=== PATIENT | male | born 1975 | race Caucasian/White ===

== ENCOUNTER → 2023-02-19 12:02 | Outpatient (BNVA) | payer OTHER, SELFPAY | PROVIDERS: PCP Nurse Practitioner Family; Visit Provider Physician Assistant ==

== ENCOUNTER 2023-03-07 11:36 | Outpatient (REF) | payer OTHER, SELFPAY ==
--- NOTE | 2023-03-07 09:00 | EMG_ITS ---
Right median and ulnar motor and sensory studies were performed. Right radial sensory study was performed and paraspinal muscles were tested with a needle. IMPRESSION: 1. Fmac-cm-hvwqywci right median neuropathy across carpal tunnel. 2. Mild right ulnar neuropathy across cubital tunnel. MD JANELL Viera/ELODIA / [phone]
== END 2023-03-07 11:37 | disposition home or self-care (01) ==
LOC: HO.NEURO 11:36
PROVIDERS: PCP Nurse Practitioner Family; Visit Provider Nurse Practitioner Family
DX: R20.0 Anesthesia of skin (principal)
CPT/HCPCS: 95886; 95909

== ENCOUNTER 2023-05-09 07:32 | Outpatient (AMB) | payer OTHER, SELFPAY ==
--- NOTE | 2023-05-09 07:37 | A.OFFPC_ITS ---
Vital Signs 05/09/23 07:38 Height 5 ft 11 in Weight 196 lb 6 oz BMI 27.4 BP 126/72 Blood Pressure Location Rt brachial Position Sitting Pulse 66 Pulse Source Pulse Oximeter Pulse Oximetry (%) 100 Oxygen Delivery Method Room Air Intake Visit Reasons: PE Allergies penicillin V Allergy (Unknown, Verified 05/09/23 07:41) unknown Tobacco use date assessed: 05/09/23 Dental Screening Dental Screen Date: 05/09/23 Did you have a dental visit in the last 12 months?: Yes Did you have a dental problem in the last 6 months where you did not have access to dental care?: No Was dental information given to patient?: Patient has dentist HPI PE HPI Details Pt is here for a PE. Will order labs. Due for PSA, will order. Denies dribblin with urination, weak stream, and nocturia. Pt is interested in seeeing a therapist, will have BH team reach out to pt. Denies any SI and HI. PFSH Family History Paternal Aunt Substance use disorder Father Substance use disorder Paternal Grandfather Substance use disorder Social History Housing: House Patient Tobacco Use Status: Never used Tobacco e-Cigarette/Vaping Use: Never Used Second Hand Smoke Exposure: No service: Yes Current occupational status: employed Current occupation: [employer] Current occupational exposures/hazards: No Cognitive needs: No Hearing needs: No Vision needs: No Questionnaire PHQ-9 Over the last 2 weeks, how often have you been bothered by any of the following problems? 1. Little interest or pleasure in doing things: not at all 2. Feeling down, depressed, or hopeless: not at all 3. Trouble falling or staying asleep, or sleeping too much: not at all 4. Feeling tired or having little energy: not at all 5. Poor appetite or overeating: not at all 6. Feeling bad about yourself - or that you are a failure or have let yourself or your family down: not at all 7. Trouble concentrating on things, such as reading the newspaper or watching television: not at all 8. Moving or speaking so slowly that other people could have noticed. Or the opposite - being so fidgety or restless that you have been moving around a lot more than usual: not at all 9. Thoughts that you would be better off or of hurting yourself in some way: not at all Total score: 0 Depression Screening Interpretation: Negative 12194 - PHQ-9 Billing: Yes Source: Developed by Drs. Isacc Flaherty, Yamilex Magdaleno, Darron Diehl and colleagues, with an educational karyn from [employer]. Thrive Questionnaire Date Thrive assessed: 05/09/23 I am a: Patient What is your living situation today?: I have a steady place to live Within the past 12 months, did the food you bought not last and you didn't have the money to get more?: Never true Within the past 12 months, did you worry whether your food would run out before you got money to buy more?: Never true Do you have trouble paying for medicines?: No Do you have trouble getting transportation to medical appointments?: No Do you have trouble paying your heating and electricity bill?: No Do you have trouble taking care of your child, family member or friend?: No Do you have trouble with day-to-day activities such as bathing, preparing meals, shopping, managing finances, etc.?: No Are you currently unemployed and looking for a job?: No Are you interested in more education?: No KESHAWN-7 AMB Questionnaire KESHAWN-7 Date KESHAWN - 7 assessed: 05/09/23 Feeling nervous, anxious, or on edge: 0 = Not at all Not being able to stop or control worryin = Not at all Worrying too much about different things: 0 = Not at all Trouble relaxin = Not at all Being so restless that it is hard to sit still: 0 = Not at all Becoming easily annoyed or irritable: 0 = Not at all Feeling afraid as if something awful might happen: 0 = Not at all Total KESHAWN-7 score (0-4 normal; 5-9 mild; 10-14 moderate; 15-21 severe): 0 Source: Developed by Drs. Isacc Flaherty, Yamilex Magdaleno, Darron Diehl and colleagues, with an educational karyn from [employer]. KESHAWN-7 Assessment Billing KESHAWN-7 Assessment Tool: KESHAWN-7 Assessment 89729 Review of Systems Const Denies chills and Denies fever(s) Eyes Denies blurry vision ENT Denies vertigo, Denies dizziness and Denies sore throat Card Denies chest pain at rest, Denies chest pain with activity, Denies diaphoresis, Denies dyspnea and Denies dyspnea on exertion Resp Denies cough, Denies dyspnea, Denies dyspnea on exertion and Denies wheezing GI Denies abdominal pain, Denies melena, Denies hematochezia, Denies constipation, Denies diarrhea and Denies loose stools Denies hematuria Musc Denies numbness and Denies tingling Skin/Breast Denies lesions Neuro Denies vertigo, Denies dizziness, Denies numbness and Denies tingling Psych Denies anxiety, Denies depression, Denies homicidal ideation, Denies suicidal ideation and Denies other (substance abuse) Aller/Immun Denies wheezing Physical exam (Primary Care) Vital Signs: Last Vital Signs Pulse 66 05/09/23 07:38 BP 126/72 05/09/23 07:38 Pulse Ox 100 05/09/23 07:38 Oxygen Delivery Method Room Air 05/09/23 07:38 BMI result Body Mass Index 27.4 Tobacco/Smoking Status: Tobacco use Status Tobacco use date assessed 05/09/23 05/09/23 07:45 Patient Tobacco Use Status Never used Tobacco 05/09/23 07:45 e-Cigarette/Vaping Use Never Used 05/09/23 07:45 PHQ-9: PHQ-9 Score PHQ-9: Total score 0 05/09/23 08:13 Depression Screening Interpretation: Negative Thrive Assessment: Date of Thrive Assessment Date Thrive assessed 05/09/23 05/09/23 08:13 Const General: cooperative Nutritional Appearance: well nourished Orientation/consciousness: patient oriented x3 HENMT Head: Yes normal to inspection, Yes normocephalic and Yes atraumatic Ears: TM's normal bilaterally Eyes General: appearance normal, both eyes and all related structures Alignment and Position: alignment normal and position normal Neck Neck: Yes normal visual inspection and Yes no lymphadenopathy Thyroid: Thyroid normal Resp Effort & Inspection: normal respiratory effort Auscultation: clear to auscultation bilaterally Cardio Rate: regular rate Rhythm: regular rhythm Heart sounds: S1 normal heart sound present, S2 normal heart sound present and no murmurs GI Palpation (GI): Soft to palpation and nontender Auscultation: normal bowel sounds Male General Exam: Yes normal external exam Penis: normal penis Scrotum: scrotum normal, testes descended bilaterally and no inguinal hernias Testes: no testicular mass Skin Rashes: no rashes Neuro General: patient oriented x3, moves all extremities, no focal motor deficits and deep tendon reflexes 2+ bilaterally Romberg Test: Negative Psych Appearance: grossly normal Mental Status: mental status grossly normal Speech and movement: Normal speech and movement present Affect: normal affect Attitude: cooperative Thought process: Normal thought process present Thought content: Normal thought content present Insight: Good insight present (Psych) Judgement: Good judgement present (Psych) Assessment and Plan Assessment & Plan (1) Physical exam, annual: Code(s): Z00.00 - Encounter for general adult medical examination without abnormal findings Plan: Labs ordered (2) Screening PSA (prostate specific antigen): Code(s): Z12.5 - Encounter for screening for malignant neoplasm of prostate Plan: PSA ordered Plan The patient agreed to the use of a medical administrative assistant for this encounter. Scribed for MONI Dye-TC by Chelsie Mederos medical administrative assistant, on 05/09/2023 at 07:45 EST. Orders: Orders Comprehensive [place]. Panel Fast Today Z00.00 - Encounter for general adult medical examination without abnormal findings Lipid Panel Today Z00.00 - Encounter for general adult medical examination without abnormal findings TSH reflex Free T4 Today Z00.00 - Encounter for general adult medical examination without abnormal findings Complete Blood Count Auto Diff Today Z00.00 - Encounter for general adult medical examination without abnormal findings UA CC w/rflx Micro + Cult Today Z00.00 - Encounter for general adult medical examination without abnormal findings Prostate Specific Antigen Scr Today Z12.5 - Encounter for screening for malignant neoplasm of prostate Coding Level of Care Code Est Pt Prev Care 40-64y(93809) Diagnoses Physical exam, annual Z00.00 Screening PSA (prostate specific antigen) Z12.5 Additional Codes KESHAWN-7 Assessment Billing - KESHAWN-7 Assessment Tool: KESHAWN-7 Assessment 37051 ([id number])
[2023-05-09 07:38] VITALS: BP 126/72; PULSE 66; O2SAT 100; BMI 27.4
== END 2023-05-09 08:03 | disposition home or self-care (01) ==
PROVIDERS: Visit Provider Nurse Practitioner Family
DX: Z00.00 Encounter for general adult medical examination without abnormal findings (principal); Z12.5 Encounter for screening for malignant neoplasm of prostate
CPT/HCPCS: 99396

== ENCOUNTER 2023-05-21 14:52 | Outpatient (AMB) | payer OTHER, SELFPAY ==
--- NOTE | 2023-05-21 15:04 | A.OFFVIS_ITS ---
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 Patient reports ongoing for many years. Having ongoing numbness and tingling in his arm. Pain is worse when laying on it and driving. 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 He complains of numbness and pain primarily in his left arm, from his elbow and radiating down into his hand. He says his arm is numb all the time . He has numbness in all digits of the left hand. He says his numbness is worse at night or with activities such as driving, he also says his numbness is worse with inclimate weather. He says he has had been feeling numbness in his left hand for ~10 years, and it has been more constant for ~2 years. He also says his hand has been swelling occasionally, mostly in the mornings. He also complains of numbness in all digits of the right hand. He says his symptoms are intermittent, but daily, worse at night. His right hand is not as bothersome as his left. 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 He says he tries to stay active with exercise throughout the week. He says his NCS was performed primarily on his LUE and his neck, and not performed on his RUE. The report from Neurology says they tested the RUE only. [facility] Family History Paternal Aunt Substance use disorder Father Substance use disorder Paternal Grandfather Substance use disorder Social History Housing: House Patient Tobacco Use Status: Never used Tobacco e-Cigarette/Vaping Use: Never Used Second Hand Smoke Exposure: No service: Yes Current occupational status: employed Current occupation: [employer] Current occupational exposures/hazards: No Cognitive needs: No Hearing needs: No Vision needs: No Review of Systems Const All systems reviewed & are unremarkable except as noted in HPI and below Physical Exam Const General: cooperative, healthy appearing and no acute distress Orientation/consciousness: patient oriented x3 HEENT Head: Yes normocephalic and Yes atraumatic Eyes EOM: EOMs intact bilaterally Resp Effort & Inspection: normal respiratory effort and able to speak in complete sentences Cardio Jugular venous distension: no JVD Skin General skin exam: turgor normal Rashes: no rashes Neuro General: patient oriented x3 Extrem Other: Evaluation of Bilateral Upper Extremity: The patient is alert, oriented, and in no acute distress Neuro: Dense numbness to the tips of all digits of the left hand including the small finger. Normal sensation to the tips of all digits of the right hand today in clinic No thenar or intrinsic wasting Good APB muscle belly firing and good finger cross Vascular: Cap refill brisk ROM: He can make a fist and extend all his digits Skin: No lacerations or abrasions. General: No Ecchymosis. No Erythema or evidence of infection. Nerve Conduction Study: Note: Patient reports this was done on the LUE and his neck and not his RUE IMPRESSION:? 1. Ioxg-ov-gcbzawyv right median neuropathy across carpal tunnel. 2. Mild right ulnar neuropathy across cubital tunnel. Florida Brown MD 03/07/2023 Psych Appearance: grossly normal Affect: normal affect Attitude: cooperative Assessment & Plan Assessment & Plan (1) Carpal tunnel syndrome of left wrist: Code(s): G56.02 - Carpal tunnel syndrome, left upper limb (2) Cubital tunnel syndrome on left: Code(s): G56.22 - Lesion of ulnar nerve, left upper limb (3) Numbness of right hand: Code(s): R20.0 - Anesthesia of skin Plan Assessment & Plan: 1. Left Carpal tunnel syndrome, mild-moderate With dense numbness 2. Left Cubital tunnel syndrome, mild With dense numbness, worse at night His NCS report from 03/07/23, performed by Dr. Brown states that only his RUE tested. Speaking with the patient he says his LUE and neck were tested. I AM HAVING 1 OF OUR MA EASE reach out to Dr. Brown'S OFFICE concerning this I educated him about this condition I discussed operative and non-operative treatment options The patient would like to proceed with surgery The risks and benefits of operative treatment were discussed with the patient and the patient wishes to proceed with surgery. These risks include, but are not limited to risk of damage to blood vessels, nerves, tendons, infection, recurrence, incomplete relief of preoperative symptoms, persistent pain, possible need for further surgery and the risks associated with regional blocks and anesthesia. The plan is to take the patient to the operating room sometime in the next few weeks for the following procedures: 1. Left carpal tunnel release, under general 2. Left Cubital tunnel release vs transposition, under general All of the preoperative paperwork including the consent was filled out today. All the patient's questions were answered. The patient understands that they will be contacted by our actuarial science teacher soon to schedule this procedure He does not want any narcotic medication post-operatively He denies Diabetes, blood thinners, asthma, heart, lung, kidney issues 3. Right hand numbness In all digits Symptoms intermittent, but daily, worse at night We can discuss this at a later date Scribed for Karla Olivares MD by Samson Curtis, medical manager, on 05/21/23 at 3:35 PM, EST. Coding Level of Care Code New Pt Level 4 (07118) Diagnoses Carpal tunnel syndrome of left wrist G56.02 Cubital tunnel syndrome on left G56.22 Numbness of right hand R20.0
== END 2023-05-21 15:44 | disposition home or self-care (01) ==
PROVIDERS: PCP Nurse Practitioner Family; Visit Provider Orthopaedic Surgery
DX: G56.02 Carpal tunnel syndrome, left upper limb (principal); G56.22 Lesion of ulnar nerve, left upper limb; R20.0 Anesthesia of skin
CPT/HCPCS: 99204

== ENCOUNTER → 2023-05-21 14:52 | Outpatient (BNVA) | payer OTHER, SELFPAY | PROVIDERS: PCP Nurse Practitioner Family; Visit Provider Orthopaedic Surgery ==

== ENCOUNTER 2023-06-20 07:40 | Day surgery (SDC) | payer OTHER, SELFPAY ==
[2023-06-18 14:51] VITALS: BMI 27.4
--- NOTE | 2023-06-19 12:03 | HO.ANESPROP2 ---
Documented by User: Norma Bowen NP 06/19/23 12:04 HPI - Anesthesia Eval Consult details Narrative: 47yo M for Left Carpal Tunnel Release, Left Cubital Tunnel Release vs transpostition PMFSH Active Problems Active Problems: All Active Problems (Updated 05/21/23 @ 15:34 by Samson Curtis) Cubital tunnel syndrome on left (Acute) Carpal tunnel syndrome of left wrist (Acute) Screening PSA (prostate specific antigen) (Acute) Physical exam, annual (Acute) Numbness of right hand (Acute) Screening for colon cancer (Acute) Bilateral hand numbness (Acute) Carpal tunnel syndrome (Acute) Soft tissue lesion (Acute) Family History Family History Paternal Aunt Substance use disorder Father Substance use disorder Paternal Grandfather Substance use disorder Social History Social History Housing: House Patient Tobacco Use Status: Never used Tobacco e-Cigarette/Vaping Use: Never Used Second Hand Smoke Exposure: No Are you DNR?: No Advance Directives: No Advance Directives Information Provided: Yes Nutrition Risks: No Nutritional Risk service: Yes Current occupational status: employed Current occupation: [employer] Current occupational exposures/hazards: No Cognitive needs: No Hearing needs: No Vision needs: No Meds Allergies Allergy/AdvReac Type Severity Reaction Status Date / Time penicillin V Allergy Unknown unknown Verified 06/20/23 08:09 Exam Exam Date and Time: June 19, 2023 1203 Height,Weight and Vital Signs: Height 5 ft 11 in Weight 89.176 kg Assessment and Plan Assessment Anesthesia Assessment: Chart Reviewed Documented by User: Yaneli Vargas MD 06/20/23 08:22 PMFSH Family History Family History Paternal Aunt Substance use disorder Father Substance use disorder Paternal Grandfather Substance use disorder Family history of problems with anesthesia: No Surgical History History of Problems with Anesthesia: No Social History Social History Housing: House Patient Tobacco Use Status: Never used Tobacco e-Cigarette/Vaping Use: Never Used Second Hand Smoke Exposure: No Are you DNR?: No Advance Directives: No Advance Directives Information Provided: Yes Nutrition Risks: No Nutritional Risk service: Yes Current occupational status: employed Current occupation: [employer] Current occupational exposures/hazards: No Cognitive needs: No Hearing needs: No Vision needs: No Meds Allergies Allergy/AdvReac Type Severity Reaction Status Date / Time penicillin V Allergy Unknown unknown Verified 06/20/23 08:09 Exam Airway Mallampati Class: II TM Dist: >3cm Neck ROM: Full Heart: rrr Lungs: cta Assessment and Plan Assessment Anesthesia Assessment: Anesthesia Plan Discussed Final Anesthetic Review Family History of Problems with Anesthesia: No History of Problems with Anesthesia: No NPO: Yes ASA Class: I Final Preanesthetic Review: No Changes in Pt Med Stat, Meds/Allgs Chart Reviewed, Consent Obtained/Reviewed and Anes Risks/Benef Reviewed Patient Risk: Low Procedure Risk: Low Anesthetic Plan Anesthetic Plan: GA Disposition: Standard PACU
[2023-06-20] VITALS (8 sets, daily range): BP systolic 108–134; BP diastolic 66–85; PULSE 53–68; RESP 16–18; TEMP 36.2–36.7; O2SAT 98–100
[2023-06-20] MEDS: Lactated Ringers 1,000 ML 100 ML IVCONT (08:00)
--- NOTE | 2023-06-20 09:12 | MHC.SHP ---
Pre-Procedural Eval Section A Date of Service: 06/20/23 The patient is an INPATIENT: No Changes since office visit: No Cold of Flu in the past 2 weeks, No New Medical Problems, No Changes in Medication and No Patient answered all questions The History & Physical has been completed within 30 days and I have reviewed it.: Yes Section B Chief Complaint: Carpal tunnel syndrome, left upper limb Allergies: Allergies Allergy/AdvReac Type Severity Reaction Status Date / Time penicillin V Allergy Unknown unknown Verified 06/20/23 08:09 Plan I have reviewed the history and physical and performed a pertinent physical examination on my patient. No changes have occurred unless specified. Time Spent With Patient Time: Total time managing care of this patient today ____ minutes.
--- NOTE | 2023-06-20 09:12 | W.PM.OPN ---
Operative Note Operative Note Date of Service: 06/20/23 Narrative: Operative Note Narrative: Preop diagnosis: 1. left Cubital tunnel syndrome 2. Left carpal tunnel syndrome Postop diagnosis: Same Procedure: 1. left Cubital Tunnel Release 2. Left carpal tunnel release Surgeon: Karla Olivares MD Anesthesia: General Anesthesia Findings: Thickening and fibrosis about the ulnar nerve at the cubital tunnel. After cubital tunnel release the ulnar nerve was noted to slide out from the groove slightly with elbow flexion, but did not subluxate. Implants: none Tourniquet time: 35 minutes EBL: 5.0 ml Specimen: none Drains: None Complications: None Disposition: Brought to the recovery room in stable condition Plan: Follow-up in 10-14 days for wound check, and suture removal Indications: The patient is 47 years old with left cubital tunnel syndrome and left carpal tunnel syndrome . The risks and benefits of operative treatment, including but not limited to risk of damage to blood vessels, nerves, tendons, infection, recurrence, persistent pain or numbness, incomplete resolution of preoperative symptoms, or need for further surgery were discussed with the patient and they wished to proceed with surgery. Procedure: Once consent was obtained patient was brought back to the operating suite and placed in the operating table in a supine position. Perioperative antibiotics and anesthesia was administered by the anesthesia team. The limb was prepped and draped in a standard surgical fashion, and a sterile tourniquet applied to the proximal aspect of the left upper extremity. The limb was elevated exsanguinated with Esmarch bandage and the tourniquet inflated to 250 mm of mercury for a total tourniquet time of 35 minutes. Once assured that we had a good block, a 2.0 cm longitudinal incision was made centered over the left carpal tunnel. The incision was made through the skin to the subcutaneous tissues using a #15 blade. Dissection was made down to the level of the transverse carpal ligament with care being taken to protect the palmar cutaneous nerve. Once the transverse carpal ligament was clearly visualized, a longitudinal incision was made in the transverse carpal ligament 1st using a #15 blade, then using tenotomy scissors under direct visualization. Care was taken to look for and protect the motor branch of the median nerve when seen in this area. Once satisfied with our carpal tunnel release the wound was irrigated with normal saline. A 6 cm gently curved but longitudinally oriented incision was made centered over the cubital tunnel of the left upper extremity. Incision was made through the skin to the subcutaneous tissues using a # 15 Blade. I then dissected down to the level of the medial epicondyle and the cubital tunnel using tenotomy scissors. Care was taken to protect the lateral antebrachial cutaneous nerve. The ulnar nerve was identified just posterior to the medial intermuscular septum. The ulnar nerve was released in a proximal to distal direction using tenotomy in iris scissors while directly visualizing and protecting the ulnar nerve. Thickening and fibrosis was appreciated about the ulnar nerve as it passed through the cubital tunnel. The ulnar nerve was assessed as I passed the elbow through full flexion and extension . The ulnar nerve was found to slide from its groove slightly with elbow flexion but did not subluxate. I felt transposition was not necessary. . At this point the tourniquet was deflated and hemostasis obtained with a brief period of local pressure and bipolar electrocautery. The wound was copiously irrigated with normal saline. The subcutaneous layer was closed with 4-0 Vicryl suture, and the skin edges were reapproximated with 5-0 nylon suture. The wound was infiltrated with some 1% lidocaine with epinephrine for postop pain control and sterile dressings were applied. The patient appears to have tolerated the procedure well and with no complications. All digits were well vascularized conclusion of the case.
== END 2023-06-20 12:23 | disposition home or self-care (01) ==
PROVIDERS: PCP Nurse Practitioner Family; Visit Provider Orthopaedic Surgery
PROC: (CPT 64721; principal; 2023-06-20 09:00)
PROC: (CPT 64718; 2023-06-20 09:00)
DX: G56.02 Carpal tunnel syndrome, left upper limb (principal); G56.22 Lesion of ulnar nerve, left upper limb; M25.522 Pain in left elbow; R20.0 Anesthesia of skin; R20.2 Paresthesia of skin; Z88.0 Allergy status to penicillin
CPT/HCPCS: 64721; 64718; J0690; J2250; J3010

== ENCOUNTER → 2023-06-20 07:40 | Outpatient (BNV) | payer OTHER, SELFPAY | PROVIDERS: PCP Nurse Practitioner Family; Visit Provider Orthopaedic Surgery | DX: G56.22 Lesion of ulnar nerve, left upper limb (principal); G56.02 Carpal tunnel syndrome, left upper limb | CPT/HCPCS: 64718; 64721 ==

== ENCOUNTER 2023-07-03 13:52 | Outpatient (AMB) | payer OTHER, SELFPAY ==
--- NOTE | 2023-07-03 13:54 | MHC.OFFVIS ---
Intake Intake Visit Reasons: PO LT CTR, Cub.Rel.vs Transp. 06/20/23AR Intake Note: Prabhjot 47 yr old male presents today for his P/O visit for his left CTR and Cubital release from 06/20/23. Sutures removed and steri strips applied. States he is experiencing sharp electric shock in tips of fingers. Also mentioned his sensation has improved a little. Allergies penicillin V Allergy (Unknown, Verified 07/03/23 14:08) unknown HPI PO LT CTR, Cub.Rel.vs Transp. 06/20/23AR HPI Details Prabhjot is a 47 year old right hand dominant man who presents S/P left carpal tunnel release & cubital tunnel release, DOS: 06/20/23. He says he is feeling a sharp shocking sensation to the tips of his fingers which he is concerned about. His sensation is perhaps slightly improved but continues to feel numb to the tips of all digits. 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 [facility] Family History Paternal Aunt Substance use disorder Father Substance use disorder Paternal Grandfather Substance use disorder Social History Housing: House Patient Tobacco Use Status: Never used Tobacco e-Cigarette/Vaping Use: Never Used Second Hand Smoke Exposure: No service: Yes Current occupational status: employed Current occupation: [employer] Current occupational exposures/hazards: No Cognitive needs: No Hearing needs: No Vision needs: No Review of Systems Const All systems reviewed & are unremarkable except as noted in HPI and below Physical Exam Const General: no acute distress and alert Orientation/consciousness: patient oriented x3 Neuro General: patient oriented x3 Extrem Other: The patient was alert oriented and in no acute distress Left upper extremity exam: The left elbow and left palm incisions are healing well with no erythema drainage or evidence of infection. Sutures removed and Steri-Strips applied He can make a fist and extend all his digits Good active elbow range of motion without discomfort He continues to have dense numbness to the tips of all digits Cap refill is brisk Nerve Conduction Study: Note: Patient reports this was done on the LUE and his neck and not his RUE IMPRESSION:? 1. [id number]-[id number] right median neuropathy across carpal tunnel. 2. Mild right ulnar neuropathy across cubital tunnel. Florida Brown MD 03/07/2023 Psych Appearance: grossly normal Affect: normal affect Attitude: cooperative Assessment & Plan Assessment & Plan (1) Carpal tunnel syndrome of left wrist: Code(s): G56.02 - Carpal tunnel syndrome, left upper limb (2) Cubital tunnel syndrome on left: Code(s): G56.22 - Lesion of ulnar nerve, left upper limb (3) Numbness of right hand: Code(s): R20.0 - Anesthesia of skin Plan Assessment & Plan: 1. Left Carpal tunnel syndrome, S/P release Date of surgery 06/20/2023 Pre-operatively with dense numbness Still with dense numbness, perhaps slightly improved 2. Left Cubital tunnel syndrome, S/P release Is date of surgery 06/20/2023 Pre-operatively with dense numbness, worse at night Still with dense numbness, perhaps slightly improved The patient appears to be doing well post-operatively I educated him about the post-operative course I discussed activity modifications, he is to lift nothing heavier than a cellphone for the next two weeks He will perform gentle ROM exercises at home He should avoid any underwater activities for the next 5 days He should gently massage about the incision site to reduce the risk of hypersensitivity He can follow up prn 3. Right hand numbness In all digits Symptoms intermittent several times a week, worse at night Please note, No nerve conduction study was performed on the right hand We can discuss this at a later date I encouraged him to follow up sooner if his symptoms increase in frequency and severity and explained the risks of delaying treatment if his numbness worsens Scribed for Karla Olivares MD by Samson Curtis, medical collections representative, on 07/03/23 at 2:20 PM, EST. Coding Level of Care Code Global (25933) Diagnoses Carpal tunnel syndrome of left wrist G56.02 Cubital tunnel syndrome on left G56.22 Numbness of right hand R20.0
== END 2023-07-03 14:37 | disposition home or self-care (01) ==
PROVIDERS: PCP Nurse Practitioner Family; Visit Provider Orthopaedic Surgery
DX: G56.02 Carpal tunnel syndrome, left upper limb (principal); G56.22 Lesion of ulnar nerve, left upper limb; R20.0 Anesthesia of skin
CPT/HCPCS: 99024

== ENCOUNTER → 2023-07-03 13:52 | Outpatient (BNVA) | payer OTHER, SELFPAY | PROVIDERS: PCP Nurse Practitioner Family; Visit Provider Orthopaedic Surgery ==

== ENCOUNTER 2023-08-29 10:45 | Day surgery (SDC) | payer OTHER, SELFPAY ==
[2023-08-27 13:06] VITALS: BMI 27.3
--- NOTE | 2023-08-28 10:22 | P.CONAN_ITS ---
Documented by User: Norma Bowen NP 08/28/23 10:22 HPI - Anesthesia Eval Consult details Narrative: 48yo M for Colonoscopy PMFSH Active Problems Active Problems: All Active Problems (Updated 05/21/23 @ 15:34 by Samson Curtis) Cubital tunnel syndrome on left (Acute) Carpal tunnel syndrome of left wrist (Acute) Screening PSA (prostate specific antigen) (Acute) Physical exam, annual (Acute) Numbness of right hand (Acute) Screening for colon cancer (Acute) Bilateral hand numbness (Acute) Carpal tunnel syndrome (Acute) Soft tissue lesion (Acute) Family History Family History Paternal Aunt Substance use disorder Father Substance use disorder Paternal Grandfather Substance use disorder Family history of problems with anesthesia: No Surgical History Surgical History History of vasectomy History of decompression of ulnar nerve History of arthroscopy of knee History of carpal tunnel release History of Problems with Anesthesia: No Social History Social History Housing: House Patient Tobacco Use Status: Never used Tobacco e-Cigarette/Vaping Use: Never Used Second Hand Smoke Exposure: No service: Yes Current occupational status: employed Current occupation: [employer] Current occupational exposures/hazards: No Cognitive needs: No Hearing needs: No Vision needs: No Meds Allergies Allergy/AdvReac Type Severity Reaction Status Date / Time penicillin V Allergy Unknown unknown Verified 07/03/23 14:08 Exam Exam Date and Time: August 28, 2023 1022 Height,Weight and Vital Signs: Height 5 ft 11 in Weight 88.904 kg Assessment and Plan Assessment Anesthesia Assessment: Chart Reviewed Final Anesthetic Review Family History of Problems with Anesthesia: No History of Problems with Anesthesia: No Documented by User: Michealfabiola Galaviz MD 08/29/23 14:10 [facility] Family History Family History Paternal Aunt Substance use disorder Father Substance use disorder Paternal Grandfather Substance use disorder Surgical History Surgical History History of vasectomy History of decompression of ulnar nerve History of arthroscopy of knee History of carpal tunnel release Social History Social History Housing: House Patient Tobacco Use Status: Never used Tobacco e-Cigarette/Vaping Use: Never Used Second Hand Smoke Exposure: No service: Yes Current occupational status: employed Current occupation: [employer] Current occupational exposures/hazards: No Cognitive needs: No Hearing needs: No Vision needs: No Meds Allergies Allergy/AdvReac Type Severity Reaction Status Date / Time penicillin V Allergy Unknown unknown Verified 07/03/23 14:08 Exam Airway Mallampati Class: I TM Dist: >3cm Neck ROM: Full Loose/Missing/Broken Teeth: No Assessment and Plan Assessment Anesthesia Assessment: Anesthesia Plan Discussed Final Anesthetic Review NPO: Yes ASA Class: I Final Preanesthetic Review: No Changes in Pt Med Stat, Meds/Allgs Chart Reviewed, Consent Obtained/Reviewed and Anes Risks/Benef Reviewed Patient Risk: Low Procedure Risk: Low Anesthetic Plan Anesthetic Plan: MAC: Disposition: Standard PACU
[2023-08-29 10:59] VITALS: BP 138/82; PULSE 57; RESP 16; TEMP 36.7; O2SAT 99; BMI 25.4
[2023-08-29] MEDS: Lactated Ringers 1,000 ML 100 ML IVCONT (11:09)
--- NOTE | 2023-08-29 11:36 | MHC.SHP ---
Pre-Procedural Eval Section A Date of Service: 08/29/23 Section B Chief Complaint: Encounter for screening for malignant neoplasm Relevant Family History (Specify if Yes): No Relevant Social History: None Present Medications: see Short Stay Collaborative assessment Medical History: Significant History (carpal tunnel syndrome) History of Previous Operations: No relevant previous surgery Allergies: Allergies Allergy/AdvReac Type Severity Reaction Status Date / Time penicillin V Allergy Unknown unknown Verified 07/03/23 14:08 Review of Systems Sugical H&P ROS: Negative: Constitution, Cardiovascular, Respiratory, Neurological, Psychiatric, Hem-Onc, Allergic/Immunologic, Gastrointestinal, Genitourinary, Musculoskeletal, Integumentary, Endocrine and Eyes/Ears/Nose/Throat Exam Surgical H&P Exam: Normal: HEENT, Normal: Heart, Normal: Lungs, Normal: Extremities, Normal: Abdomen, Normal: Skin and Normal: Neurological Plan Diagnosis/Plan: Unchanged I have reviewed the history and physical and performed a pertinent physical examination on my patient. No changes have occurred unless specified. Time Spent With Patient Time: Total time managing care of this patient today ____ minutes.
--- NOTE | 2023-08-29 11:37 | P.OP_ITS ---
Operative Note Operative Note Date of Service: 08/29/23 Narrative: Operative Information Procedure Description: Colonoscopy Indication: screening Anesthesia: MAC COLONOSCOPY Instrument: Olympus variable stiffness pediatric scope 190L Colonoscopy Monitoring: Vital signs and clinical assessment, continuous EKG monitoring, Pulse oximetry, Carbon Dioxide monitoring and blood pressure monitoring were done throughout the procedure. Colon withdrawal time was 10 minutes. Procedure: The patient was placed in the left lateral decubitis position and pre-procedure medications were administered. After a digital rectal examination of the ano-rectum, the video colonoscope was inserted into the rectum and advanced through the colon to the cecum/TI. The colonoscope was slowly withdrawn in a retrograde panoramic fashion and the colon mucosa was carefully examined including a retroflexed view of the rectum. Findings and interventions are described below. Procedure Difficulty: moderate Findings: Terminal Ileum-normal Cecum:normal Ascending Colon: normal Transverse Colon - 6-8 mm sessile polyp removed with cold snare Descending Colon:normal Sigmoid Colon: mild diverticulosis, 4-5 mm sessile polyp removed with cold forceps Rectum: Retroflexion with small internal hemorrhoids, grade I Anorectum - normal Colon preparation: [place] Bowel Preparation Scale Right colon; 2 Transverse colon: 2 Left colon; 2 (0 = Unprepared colon segment with mucosa not seen due to solid stool that cannot be cleared. 1 = Portion of mucosa of the colon segment seen, but other areas of the colon segment not well seen due to staining, residual stool and/or opaque liquid. 2 = Minor amount of residual staining, small fragments of stool and/or opaque liquid, but mucosa of colon segment seen well. 3 = Entire mucosa of colon segment seen well with no residual staining, small fragments of stool or opaque liquid) Impression and Post Procedure Diagnosis: polyps internal hemorrhoids diverticular disease Plan: High fiber diet leaflet Avoid straining at stool, epsom salts and sitz bath, anusol supps or cream Repeat Colonoscopy in 5 years due to polyps or earlier if clinically indicated Above findings were reviewed with the patient and relevant handouts were provided if indicated.
[2023-08-29 12:26] VITALS: BP 110/70; PULSE 62; RESP 20; TEMP 36.2; O2SAT 99
[2023-08-29 12:41] VITALS: BP 114/75; PULSE 62; RESP 17; O2SAT 100
[2023-08-29 12:56] VITALS: BP 122/80; PULSE 64; RESP 18; TEMP 36.2; O2SAT 100
== END 2023-08-29 13:51 | disposition home or self-care (01) ==
PROVIDERS: PCP Nurse Practitioner Family; Visit Provider Internal Medicine Gastroenterology
PROC: 0DJD8ZZ Inspection of Lower Intestinal Tract, Via Natural or Artificial Opening Endoscopic (ICD-10-PCS; CPT 45378; principal; 2023-08-29 12:00)
DX: Z12.11 Encounter for screening for malignant neoplasm of colon (principal); D12.4 Benign neoplasm of descending colon; K57.30 Diverticulosis of large intestine without perforation or abscess without bleeding; K64.0 First degree hemorrhoids
CPT/HCPCS: 45385; 45380; 88305; J2704

== ENCOUNTER → 2023-08-29 10:45 | Outpatient (BNV) | payer OTHER, SELFPAY | PROVIDERS: PCP Nurse Practitioner Family; Visit Provider Internal Medicine Gastroenterology | DX: Z12.11 Encounter for screening for malignant neoplasm of colon (principal); D12.3 Benign neoplasm of transverse colon; D12.5 Benign neoplasm of sigmoid colon; K64.0 First degree hemorrhoids; K57.30 Diverticulosis of large intestine without perforation or abscess without bleeding | CPT/HCPCS: 45380; 45385 ==

== ENCOUNTER 2023-09-12 13:49 | Outpatient (AMB) | payer OTHER, SELFPAY ==
[2023-09-12 13:53] VITALS: BP 129/73; PULSE 52; BMI 26.4
--- NOTE | 2023-09-12 13:53 | A.OFFVIS_ITS ---
Intake Vital Signs 09/12/23 13:53 Height 5 ft 11 in Weight 189 lb 9.561 oz BMI 26.4 BP 129/73 Blood Pressure Location Lt brachial Position Sitting Pulse 52 Intake Visit Reasons: S/P [facility]; Dr. Sofia Intake Note: Prabhjot presents in the office as a follow up Colonoscopy. CC: He states that he is not having any concerns today just here for the results. Allergies penicillin V Allergy (Unknown, Verified 09/12/23 13:55) unknown HPI HPI Comments History of Present Illness Details 48-year-old male follows up after recent screening colonoscopy with Dr. Sofia He was happy with his experience Tolerated procedures well He has no GI complaints today Reviewed procedure report, pathology and recommendation-opportunity for questions answered to his satisfaction No nausea, vomiting, hematemesis, hematochezia fever chills PFSH Surgical History Hx of colonoscopy History of vasectomy History of decompression of ulnar nerve History of arthroscopy of knee History of carpal tunnel release Family History Paternal Aunt Substance use disorder Father Substance use disorder Paternal Grandfather Substance use disorder Social History Housing: House Patient Tobacco Use Status: Never used Tobacco e-Cigarette/Vaping Use: Never Used Second Hand Smoke Exposure: No service: Yes Current occupational status: employed Current occupation: [employer] Current occupational exposures/hazards: No Cognitive needs: No Hearing needs: No Vision needs: No Review of Systems Const All systems reviewed & are unremarkable except as noted in HPI and below GI Denies abdominal pain Physical Exam Vital Signs: Last Vital Signs Pulse 52 09/12/23 13:53 BP 129/73 09/12/23 13:53 BMI result Body Mass Index 26.4 Const General: cooperative, healthy appearing, comfortable and no acute distress Orientation/consciousness: patient oriented x3 Limitations: no limitations Eyes Sclerae: sclerae normal Resp Effort & Inspection: normal respiratory effort and able to speak in complete sentences Skin General skin exam: no rashes or lesions noted Neuro General: patient oriented x3 Extrem General: Yes full ROM Psych Appearance: grossly normal and well kempt Mental Status: mental status grossly normal Speech and movement: Normal speech and movement present and Clear speech present Affect: normal affect Attitude: cooperative Thought process: Normal thought process present Thought content: Normal thought content present Insight: Good insight present (Psych) Judgement: Good judgement present (Psych) Results Reviewed Results Reviewed: Impression and Post Procedure Diagnosis: polyps internal hemorrhoids diverticular disease Plan: High fiber diet leaflet Avoid straining at stool, epsom salts and sitz bath, anusol supps or cream Repeat Colonoscopy in 5 years due to polyps or earlier if clinically indicated dede: Prabhjot Warren Age/Sex: 48/M Attending: Casey Sofia MD : 1975 Submitted by: Casey Sofia MD Copies to: YvonnejeadenKiran [facility]- MR #: [id number] Status: [facility] Collected: 08/29/23 Location: [facility] Received: 08/29/23 Diagnosis A. Colon, transverse, polyp: Tubular adenoma, likely excised; negative for high- grade dysplasia and carcinoma. B. Colon, sigmoid, polyp: Colonic Assessment & Plan Assessment & Plan (1) Tubular adenoma: Comment: Index screening colonoscopy polypectomy, pathology reveals adenoma Code(s): D36.9 - Benign neoplasm, unspecified site Plan: Discuss heredity factor, AFDR screen at 40 (2) Diverticulosis of colon: Code(s): K57.30 - Diverticulosis of large intestine without perforation or abscess without bleeding Plan: Maintain high-fiber diet ER protocol (3) Hemorrhoids: Code(s): K64.9 - Unspecified hemorrhoids Plan: Maintain high-fiber diet Avoid straining Plan Colonoscopy 5 year repeat Patient Instructions: Repeat asymptomatic colonoscopy 5 years sooner if indicated All first-degree relatives begin colon screening by age 40 Maintain high-fiber diet Avoid straining, if hemorrhoids become bothersome may refer to surgery Diverticulosis/diverticulitis discussed, ER protocol Encouraged to call questions or concerns Appreciate the opportunity assist in the care this pleasant Gent Coding Level of Care Code Est Pt Level 3 (73638) Diagnoses Tubular adenoma D36.9 Diverticulosis of colon K57.30 Hemorrhoids K64.9 Time Spent (min) 20
== END 2023-09-12 14:47 | disposition home or self-care (01) ==
PROVIDERS: PCP Nurse Practitioner Family; Visit Provider Physician Assistant
DX: D36.9 Benign neoplasm, unspecified site (principal); K57.30 Diverticulosis of large intestine without perforation or abscess without bleeding; K64.9 Unspecified hemorrhoids
CPT/HCPCS: 99213

== ENCOUNTER → 2023-09-12 13:49 | Outpatient (BNVA) | payer OTHER, SELFPAY | PROVIDERS: PCP Nurse Practitioner Family; Visit Provider Physician Assistant ==